=== PATIENT | female | born 1980 | race Caucasian/White ===

== ENCOUNTER 2024-05-07 07:31 | Day surgery (SDC) | payer BC ==
[~2024-05-07 07:31] MED LIST: Midazolam 1 MG/ML 2 ML SDV ONE; fentaNYL 100 MCG/2 ML SDV ONE
[2024-05-07] MEDS: Dextrose 5%-0.45% NaCl 1,000 ML IV SCH (07:56)
[2024-05-07] MEDS: fentaNYL 100 MCG/2 ML SDV IV ONE ×2 (09:15→09:16)
[2024-05-07] MEDS: Midazolam 1 MG/ML 2 ML SDV IV ONE ×2 (09:17→09:18)
== END 2024-05-07 10:32 | disposition home health service (06) ==
LOC: DL.ENDO 07:31
PROVIDERS: ATTEND Internal Medicine Gastroenterology
DX: K29.00 Acute gastritis without bleeding (principal); K29.50 Unspecified chronic gastritis without bleeding; B96.81 Helicobacter pylori [H. pylori] as the cause of diseases classified elsewhere; K90.0 Celiac disease; Z88.2 Allergy status to sulfonamides; Z91.018 Allergy to other foods
CPT/HCPCS: 81025; 87077; J2250; J3010; J7799